=== PATIENT | female | born 1975 | race African-American/Black ===

== ENCOUNTER 2019-12-10 16:25 | Emergency (ER) | payer SELFPAY ==
[~2019-12-10] VITALS: Ht 157 cm; Wt 60.3 kg
[2019-12-10 17:44] LABS: CLARITY,URINE CLEAR; COLOR,URINE AMBER; GLUCOSE, URINE (UA) TRACE (NEGATIVE); KETONES,URINE TRACE (NEGATIVE); LEUKOCYTE ESTERASE ,URINE TRACE (NEGATIVE); NITRITE,URINE POSITIVE (NEGATIVE); PH,URINE 5.5 (5-9); PROTEIN,URINE 1+ (NEGATIVE)
[2019-12-10 17:51] LABS: BACTERIA,URINE LARGE /HPF; BILIRUBIN,URINE 3+ (NEGATIVE)
[2019-12-10 17:57] LABS: BASOPHILS # (AUTO) 0.1 10^3/uL (0.0-0.1); BASOPHILS % (AUTO) 2 % (0-10); EOSINOPHILS # (AUTO) 0.1 10^3/uL (0.0-0.3); EOSINOPHILS % (AUTO) 1 % (0-10); HEMATOCRIT 29 % (35-52); LYMPHOCYTES # (AUTO) 1.9 10^3/uL (1.0-4.0); LYMPHOCYTES % (AUTO) 24 % (12-44); MEAN CORPUSCULAR HEMOGLOBIN 30 pg (25-34); MEAN CORPUSCULAR HGB CONC 35 g/dL (32-36); MEAN CORPUSCULAR VOLUME 86 fL (80-99); MEAN PLATELET VOLUME 11.2 fL (9.0-12.2); MONOCYTES % (AUTO) 12 % (0-12); NEUTROPHILS # (AUTO) 4.9 10^3/uL (1.8-7.8); NEUTROPHILS % (AUTO) 61 % (42-75); PLATELET COUNT 144 10^3/uL (130-400)
[2019-12-10 18:07] LABS: AMYLASE 97 U/L (25-125)
[2019-12-10 18:08] LABS: AMMONIA 69 UMOL/L (11-32)
[2019-12-10 18:09] LABS: ALBUMIN 2.8 GM/DL (3.2-4.5); CHLORIDE 101 MMOL/L (98-107); POTASSIUM 3.3 MMOL/L (3.6-5.0); SODIUM 138 MMOL/L (135-145)
[2019-12-10 18:10] LABS: CALCIUM 8.2 MG/DL (8.5-10.1); INR 1.5 (0.8-1.4)
[2019-12-10 18:12] LABS: GLUCOSE 111 MG/DL (70-105); TOTAL PROTEIN 8.2 GM/DL (6.4-8.2)
[2019-12-10 18:13] LABS: CARBON DIOXIDE 26 MMOL/L (21-32)
[2019-12-10 18:14] LABS: BILIRUBIN,TOTAL 4.6 MG/DL (0.1-1.0)
[2019-12-10 18:15] LABS: ALKALINE PHOSPHATASE 177 U/L (40-136); CREATININE SERUM 0.64 MG/DL (0.60-1.30); GFR ESTIMATED > 60
[2019-12-10 18:16] LABS: BUN/CREATININE RATIO 13; LIPASE 86 U/L (8-78)
[2019-12-10 18:18] LABS: ALANINE AMINOTRANSFERASE 24 U/L (0-55); AMPHETAMINE SCREEN, URINE NEGATIVE (NEGATIVE); BARBITURATE SCREEN URINE NEGATIVE (NEGATIVE); BENZODIAZEPINES SCREEN URINE NEGATIVE (NEGATIVE); CANNABINOID SCREEN, URINE NEGATIVE (NEGATIVE); COCAINE SCREEN URINE NEGATIVE (NEGATIVE); METHADONE STAT NEGATIVE (NEGATIVE); METHAMPHETAMINE SCREEN URINE S NEGATIVE (NEGATIVE); OPIATE SCREEN URINE NEGATIVE (NEGATIVE); OXYCODONE STAT NEGATIVE (NEGATIVE); PROPOXYPHENE STAT NEGATIVE (NEGATIVE); TRICYCLIC ANTIDEPRESSANTS SCRE NEGATIVE (NEGATIVE)
[2019-12-10] MEDS ORDERED: IOHEXOL 350 MG/ML 100 ML (OMNIPAQUE 350) VIAL IV ONE (18:30)
[2019-12-10] MEDS ORDERED: NS 100 ML (IVPB) BAG IV ONE (18:30)
[2019-12-10] MEDS ORDERED: HOLD METFORMIN - RECEIVED CONTRAST 20 ML VIAL IV SCH (18:30)
[2019-12-10 18:38] LABS: TSH (THYROID ANALYZER) 2.23 UIU/ML (0.35-4.94)
--- NOTE | 2019-12-10 18:38 | ED GI ---
General Chief Complaint: Abdominal/GI Problems Stated Complaint: FOOT SWELLING/ABD SWELLING Nursing Triage Note: ARRIVED VIA AMB TO ROOM 07. SWOLLEN ABD VERY NOTICEABLE ALONG WITH BILAT SWOLLEN LEGS. EYES JAUNDICED. PT STATES SHE HAS BEEN THIS WAY FOR A WHILE. DENIES BEING PREGNAT AND ADMITS TO DRINKING DAILY. Sepsis Screen: No Definite Risk History of Present Illness Date Seen by Provider: Dec 10, 2019 Time Seen by Provider: 17:20 Initial Comments 44-year-old -Faro[place] female presents for swelling in her legs and abdominal distention. The patient states the symptoms have been present for 2-3 months. She moved to [place] from [place] approximately February 2019. She has not seen a healthcare provider in some time. She does not have an established provider in [facility]. She denies any abdominal pain, she has mild discomfort related to the distention, no chronic abdominal disease and no abdominal surgeries. She denies a menstrual cycle for the last 2 years. Urine HCG negative. She admits to drinking alcohol daily, varying amounts. Has drank daily for approximately 10 years, doesn't feel it controls her life and feels she could start decreasing her drinking. She denies any drug use. Timing/Duration: Intermittent Severity/Quality: Moderate Location: Generalized Abdomen Radiation: No Radiation Associated Symptoms: Denies Symptoms, Back Pain (chronic); No Chest Pain, No Fever/Chills, No Fatigue, No Heartburn, No Nausea/Vomiting, No Shortness of Air; Swelling/Mass in Abdomen Allergies and Home Medications Allergies Coded Allergies: No Known Drug Allergies (Unverified , 12/10/19) Home Medications Cephalexin 500 Mg Tablet, 500 MG PO TID Prescribed by: ANNE GARCIA on 12/10/191928 Patient Home Medication List Home Medication List Reviewed: Yes Review of Systems Review of Systems Constitutional: no symptoms reported, see HPI Respiratory: No Symptoms Reported, See HPI Cardiovascular: See HPI, Edema (trace bilateral lower extremity) Gastrointestinal: See HPI, Abdomen Distended; Denies Constipated, Denies Diarrhea, Denies Nausea, Denies Poor Appetite, Denies Poor Fluid Intake, Denies Rectal Bleeding, Denies Vomiting Genitourinary: No Symptoms Reported, See HPI Musculoskeletal: no symptoms reported, see HPI Skin: no symptoms reported, see HPI Psychiatric/Neurological: No Symptoms Reported, See HPI All Other Systems Reviewed Negative Unless Noted: Yes Past Esdfbuu-Wuzlcr-Qevpzf Hx Past Med/Social Hx: Reviewed Nursing Past Med/Soc Hx Patient Social History Recent Foreign Travel: No Contact w/Someone Who Travel: No Recent Infectious Disease Expo: No Recent Hopitalizations: No Seasonal Allergies Seasonal Allergies: No Past Medical History Surgeries: No Respiratory: No Cardiac: Yes Hypertension Neurological: No Genitourinary: No Gastrointestinal: No Musculoskeletal: Yes Back Injury Endocrine: No HEENT: No Cancer: No Psychosocial: Yes Anxiety, PTSD Integumentary: No Physical Exam Vital Signs Vital Signs - First Documented 12/10/19 17:20 Temp 37.0 Pulse 119 Resp 16 B/P (MAP) 126/96 (106) Pulse Ox 95 O2 Delivery Room Air Capillary Refill : Less Than 3 Seconds Height/Weight/BMI Height: '" Weight: lbs. oz. kg; 24.00 BMI Method: General Appearance: WD/WN, no apparent distress HEENT: normal ENT inspection, TMs normal, pharynx normal, scleral icterus (R), scleral icterus (L) Neck: non-tender, full range of motion, supple, normal inspection Respiratory: chest non-tender, lungs clear, normal breath sounds Cardiovascular: normal peripheral pulses, regular rate, rhythm, no murmur Gastrointestinal: non tender, no pulsatile mass, abnormal bowel sounds (Faint), distended (Marked); No rebound, No tenderness Extremities: normal range of motion, non-tender, normal inspection, normal capillary refill; No calf tenderness; other (2+ bilat pedal pulses, Cap refill < 2 sec. ) Back: normal inspection, no CVA tenderness Neurologic/Psychiatric: no motor/sensory deficits, alert, normal mood/affect, oriented x 3 Skin: normal color, warm/dry Lymphatic: no adenopathy Progress/Results/Core Measures Results/Orders Lab Results Laboratory Tests Test 12/10/19 17:40 12/10/19 17:45 Range/Units Urine Color ANTOINETTE H Urine Clarity CLEAR Urine pH 5.5 5-9 Urine Specific [place] >=1.030 1.016-1.022 Urine Protein 1+ H NEGATIVE Urine Glucose (UA) TRACE H NEGATIVE Urine Ketones TRACE H NEGATIVE Urine Nitrite POSITIVE H NEGATIVE Urine Bilirubin 3+ H NEGATIVE Urine Urobilinogen >=8.0 < = 1.0 MG/DL Urine Leukocyte Esterase TRACE H NEGATIVE Urine RBC (Auto) 1+ H NEGATIVE Urine RBC 2-5 H /HPF Urine WBC 5-10 H /HPF Urine Squamous Epithelial Cells 5-10 /HPF Urine Crystals NONE /LPF Urine Bacteria LARGE H /HPF Urine Casts NONE /LPF Urine Mucus NEGATIVE /LPF Urine Culture Indicated YES White Blood Count 8.0 4.3-11.0 10^3/uL Red Blood Count 3.34 L 3.80-5.11 10^6/uL Hemoglobin 10.0 L 11.5-16.0 g/dL Hematocrit 29 L 35-52 % Mean Corpuscular Volume 86 80-99 fL Mean Corpuscular Hemoglobin 30 25-34 pg Mean Corpuscular Hemoglobin Concent 35 32-36 g/dL Red Cell Distribution Width 23.5 H 10.0-14.5 % Platelet Count 144 130-400 10^3/uL Mean Platelet Volume 11.2 9.0-12.2 fL Immature Granulocyte % (Auto) 0 % Neutrophils (%) (Auto) 61 42-75 % Lymphocytes (%) (Auto) 24 12-44 % Monocytes (%) (Auto) 12 0-12 % Eosinophils (%) (Auto) 1 0-10 % Basophils (%) (Auto) 2 0-10 % Neutrophils # (Auto) 4.9 1.8-7.8 10^3/uL Lymphocytes # (Auto) 1.9 1.0-4.0 10^3/uL Monocytes # (Auto) 1.0 0.0-1.0 10^3/uL Eosinophils # (Auto) 0.1 0.0-0.3 10^3/uL Basophils # (Auto) 0.1 0.0-0.1 10^3/uL Immature Granulocyte # (Auto) 0.0 0.0-0.1 10^3/uL Prothrombin Time 18.0 H 12.2-14.7 SEC INR Comment 1.5 H 0.8-1.4 Activated Partial Thromboplast Time 42 H 24-35 SEC Sodium Level 138 135-145 MMOL/L Potassium Level 3.3 L 3.6-5.0 MMOL/L Chloride Level 101 98-107 MMOL/L Carbon Dioxide Level 26 21-32 MMOL/L Anion Gap 11 5-14 MMOL/L Blood Urea Nitrogen 8 7-18 MG/DL Creatinine 0.64 0.60-1.30 MG/DL Estimat Glomerular Filtration Rate > 60 BUN/Creatinine Ratio 13 Glucose Level 111 H 70-105 MG/DL Calcium Level 8.2 L 8.5-10.1 MG/DL Corrected Calcium 9.2 8.5-10.1 MG/DL Total Bilirubin 4.6 H 0.1-1.0 MG/DL Aspartate Amino Transf (AST/SGOT) 193 H 5-34 U/L Alanine Aminotransferase (ALT/SGPT) 24 0-55 U/L Alkaline Phosphatase 177 H 40-136 U/L Ammonia 69 H 11-32 UMOL/L B-Type Natriuretic Peptide 21.7 <100.0 PG/ML Total Protein 8.2 6.4-8.2 GM/DL Albumin 2.8 L 3.2-4.5 GM/DL Amylase Level 97 25-125 U/L Lipase 86 H 8-78 U/L TSH [place] Testing 2.23 0.35-4.94 UIU/ML Urine Opiates Screen NEGATIVE NEGATIVE Urine Oxycodone Screen NEGATIVE NEGATIVE Urine Methadone Screen NEGATIVE NEGATIVE Urine Propoxyphene Screen NEGATIVE NEGATIVE Urine Barbiturates Screen NEGATIVE NEGATIVE Ur Tricyclic Antidepressants Screen NEGATIVE NEGATIVE Urine Phencyclidine Screen NEGATIVE NEGATIVE Urine Amphetamines Screen NEGATIVE NEGATIVE Urine Methamphetamines Screen NEGATIVE NEGATIVE Urine Benzodiazepines Screen NEGATIVE NEGATIVE Urine Cocaine Screen NEGATIVE NEGATIVE Urine Cannabinoids Screen NEGATIVE NEGATIVE Serum Alcohol 198 H <10 MG/DL My Orders Orders - ANNE GARCIA Urine Bedside (12/10/19 17:31) Cbc With Automated Diff (12/10/19 17:31) Comprehensive Metabolic Panel (12/10/19 17:31) Thyroid Analyzer (12/10/19 17:31) Ua Culture If Indicated (12/10/19 17:31) Urine Culture (12/10/19 17:40) Alcohol (12/10/19 17:57) Ammonia (12/10/19 17:57) Amylase (12/10/19 17:57) BNP (12/10/19 17:57) Drug Screen Stat (Urine) (12/10/19 17:57) Lipase (12/10/19 17:57) Protime With Inr (12/10/19 17:57) Partial Thromboplastin Time (12/10/19 17:57) Ct Abdomen/Pelvis W Wo (12/10/19 18:22) Iohexol Injection (Omnipaque 350 Mg/Ml 1 (12/10/19 18:30) Received Contrast (Hold Metformin- Contr (12/10/19 18:30) Ns (Ivpb) (Sodium Chloride 0.9% Ivpb Bag (12/10/19 18:30) Ed Iv/Invasive Line Start (12/10/19 19:06) Ns Iv 1000 Ml (Sodium Chloride 0.9%) (12/10/19 19:06) Ceftriaxone For Iv Use (Rocephin For I (12/10/19 19:15) Medications Given in ED Current Medications Medications Dose Ordered Sig/Andrea Route Start Time Stop Time Status Last Admin Dose Admin Ceftriaxone Sodium 1000 mg/ Sterile Water 10 ml @ 200 mls/hr ONCE ONCE IV 12/10/19 19:15 12/10/19 19:17 DC 12/10/19 19:17 200 MLS/HR Iohexol 100 ml ONCE ONCE IV 12/10/19 18:30 12/10/19 19:16 DC 12/10/19 18:46 100 ML Sodium Chloride 100 ml ONCE ONCE IV 12/10/19 18:30 12/10/19 19:16 DC 12/10/19 18:46 100 ML Vital Signs/I&O 12/10/19 12/10/19 17:20 20:01 Temp 37.0 36.9 Pulse 119 105 Resp 16 16 B/P (MAP) 126/96 (106) 138/92 (106) Pulse Ox 95 94 O2 Delivery Room Air Room Air Blood Pressure Mean: 106 Progress Progress Note : Time: 17:20 Progress Note Patient seen and evaluated, will obtain a lab, pending those will get CT abdomen and pelvis. No evidence of hepatic encephalopathy, alert, oriented, no confusion. [address] Reddy about CT, will see tomorrow for Paracentesis. 1830 NS 1L IV and Rocephin 1 gm IV. [address] findings with the patient. Expressed concern that she gets follow-up. Patient agreeable. Discussed her alcohol intake. [address] Ojeda, she will get patient appt with [facility] Olman [facility]. Discharge instructions and return precautions reviewed with the patient. All questions answered. Diagnostic Imaging Diagonstic Imaging: Xray Plain Films/CT/US/NM/MRI: abdomen, pelvis Comments NAME: VER[facility]LL [facility] REC#: [id number] PT STATUS: REG ER : 1975 PHYSICIAN: ANNE GARCIA ADMIT DATE: 12/10/19/ER Draft Date of Exam:12/10/19 CT ABDOMEN/PELVIS W WO PROCEDURE: CT abdomen and pelvis with and without contrast. TECHNIQUE: Precontrast acquisitions were acquired through the abdomen and pelvis. Multiple contiguous axial images were obtained through the abdomen and pelvis after the administration of intravenous contrast. Auto Exposure Controls were utilized during the CT exam to meet ALARA standards for radiation dose reduction. INDICATION: Abdominal pain and ascites COMPARISON: None FINDINGS: The lung bases are clear. The heart is normal in size. The liver demonstrates a heterogeneous appearance, with some nodularity of the contour. The spleen is normal in size. The portal vein appears patent. There is thickening of the gallbladder wall, which is likely reactive. There is hyperdensity at the inferior gallbladder, which may represent multiple small stones. The kidneys are unremarkable. The adrenal glands appear normal. The pancreas appears normal. There are fluid-filled loops of small bowel with some wall thickening, which is likely reactive. No obstruction is seen. There is diverticulosis in the colon without diverticulitis. There is severe ascites. No free air seen. No acute osseous abnormality is seen. IMPRESSION: 1. Severe ascites. Cirrhotic appearance of the liver. 2. Cholelithiasis. Dictated on workstation # [id number] Dict: 12/10/194 Trans: 12/10/19 1859 SEAN [id number] Interpreted by: JOHN OLIVO MD Electronically signed by: Departure Impression Primary Impression: Cirrhosis Qualified Codes: K70.30 - Alcoholic cirrhosis of liver without ascites Additional Impressions: Ascites Qualified Codes: R18.8 - Other ascites UTI (urinary tract infection) Qualified Codes: N30.01 - Acute cystitis with hematuria Disposition: HOME, SELF-CARE Condition: Stable Departure-Patient Inst. Decision time for Depature: 19:00 Referrals: [facility]/ISAAC TORRES DO NO,LOCAL PHYSICIAN (PCP) Primary Care Physician Patient Instructions: Cirrhosis (DC), Fluid in the Belly (Ascites) Add. Discharge Instructions: Come to [facility] at 10:00 am, you will be sent to Radiology to have the fluid drained by Dr. Reddy. Slowly start decreasing your daily alcohol intake. increase water intake. Empty bladder frequently. Take antibiotics, as prescribed. [facility] will call you, to establish care with Dr. Olman Lorenzo. Do not drive, if you have been drinking alcohol. Return to the emergency department for new, urgent health care needs. All discharge instructions reviewed with patient and/or family. Voiced understanding. Scripts Cephalexin (Cephalexin) 500 Mg Tablet 500 MG PO TID, #15 TAB 0 Refills Prov: ANNE GARCIA 12/10/19 Work/School Note: Family Work Note Patient Received Medical Care In the Emergency Department On: Dec 10, 2019 Patient Will Be Able to Return to Work/School On: Dec 12, 2019 Patient Restrictions: Please excuse her on 12/11/19 to bring her to procedure at hospital Copy Copies To 1: ISAAC REDDY DO; LUIS ALBERTO OJEDA MD Copies To 2: OLMAN LORENZO MD, AMY ARNP Dec 10, 2019 18:38
--- NOTE | 2019-12-10 18:59 | Diagnostic Imaging Report ---
PROCEDURE: CT abdomen and pelvis with and without contrast. TECHNIQUE: Precontrast acquisitions were acquired through the abdomen and pelvis. Multiple contiguous axial images were obtained through the abdomen and pelvis after the administration of intravenous contrast. Auto Exposure Controls were utilized during the CT exam to meet ALARA standards for radiation dose reduction. INDICATION: Abdominal pain and ascites COMPARISON: None FINDINGS: The lung bases are clear. The heart is normal in size. The liver demonstrates a heterogeneous appearance, with some nodularity of the contour. The spleen is normal in size. The portal vein appears patent. There is thickening of the gallbladder wall, which is likely reactive. There is hyperdensity at the inferior gallbladder, which may represent multiple small stones. The kidneys are unremarkable. The adrenal glands appear normal. The pancreas appears normal. There are fluid-filled loops of small bowel with some wall thickening, which is likely reactive. No obstruction is seen. There is diverticulosis in the colon without diverticulitis. There is severe ascites. No free air seen. No acute osseous abnormality is seen. IMPRESSION: 1. Severe ascites. Cirrhotic appearance of the liver. 2. Cholelithiasis. Dictated by: Dictated on workstation # [id number]
[2019-12-10] MEDS ORDERED: NS IV 1000 ML 1,000 ML IV SCH (19:06)
[2019-12-10] MEDS ORDERED: cefTRIAXone FOR IV USE 1,000 MG in WATER (STERILE) FOR INJECTION 10 ML IV ONE (19:15)
[2019-12-10] MEDS ORDERED: CEPH500T PO (19:29)
[2019-12-10 20:01] VITALS: BP 138/92
== END 2019-12-10 20:04 | disposition home or self-care (01) ==
LOC: ER 16:27
DX: K74.60 Unspecified cirrhosis of liver (principal); R18.8 Other ascites; N39.0 Urinary tract infection, site not specified
CPT/HCPCS: 74178; 80053; 80306; 81000; 82140; 82150; 83690; 83880; 84443; 84703; 85025; 85610; 85730; 87077; 87088; 99284; G0480; 36415; 80320; 87186

== ENCOUNTER → 2019-12-11 | Outpatient (CLI) | payer BC ==
[~2019-12-11] VITALS: Ht 157.5 cm; Wt 56.8 kg
[~2019-12-11] MED LIST: ALBUMIN 25% 25 GM/100 ML 100 ML IV ONE; CEPH500T PO
[2019-12-11 12:30] VITALS: BP 134/95
[2019-12-11 12:45] VITALS: BP 139/98
[2019-12-11 13:00] VITALS: BP 139/98
[2019-12-11 13:20] VITALS: BP 131/95
[2019-12-11 14:26] LABS: TOTAL PROTEIN,BODY FLUID 1.8 G/DL
[2019-12-11 14:27] LABS: GLUCOSE,BODY FLUID 101 MG/DL
[2019-12-11 14:28] LABS: AMYLASE,BODY FLUID 37 U/L
[2019-12-11 14:33] LABS: LDH,BODY FLUID 80 U/L
[2019-12-11 15:31] LABS: BODY FLUID APPEARENCE SLT CLDY; BODY FLUID COLOR YELLOW; BODY FLUID RBC COUNT 69 /uL; BODY FLUID SOURCE PERITON; BODY FLUID WBC TOTAL COUNT 106 /uL
[2019-12-11 15:32] LABS: BF OTHER CELLS 78 %; LYMPHOCYTES,BODY FLUID 19 %
--- NOTE | 2019-12-12 04:21 | OPERATIVE REPORT ---
DATE OF SERVICE: 12/11/2019 PREOPERATIVE DIAGNOSIS: Symptomatic ascites. POSTOPERATIVE DIAGNOSIS: Symptomatic ascites. PROCEDURE: Ultrasound-guided paracentesis. SURGEON: Isaac Christensen DO ANESTHESIA: 1% lidocaine 3 mL. COMPLICATIONS: None. INDICATIONS: The patient is a 44-year-old female who was in the Emergency Department last night due to symptomatic ascites. The patient states that her abdomen has become more and more distended over the last couple of months. She states that she has significant alcohol usage and it was recommended that a paracentesis to be performed. She understands risks and benefits of procedure and wished to proceed with procedure. Consent was signed in the chart. DESCRIPTION OF PROCEDURE: The patient was in the procedure room. Ultrasound was used to isolate the largest pocket for catheter insertion. Once this was located, the area was prepped and draped in sterile fashion. Local anesthetic was infiltrated. An 11 blade scalpel was used to make a small stab incision. The [id number] needle and catheter were advanced through the abdominal wall into the abdomen when straw colored fluid was returned. The catheter was then advanced and a total of 6150 mL of straw colored fluid was withdrawn. The catheter was then removed and sterile bandage was applied. The patient tolerated procedure well without any complications. Job ID: [id number] DocumentID: [id number] Dictated Date: 12/11/2019 19:40:59 Director Of Psychology Date: 12/12/2019 04:20:10 Dictated By: ISAAC CHRISTENSEN DO
== END ==
LOC: RAD 10:09
PROVIDERS: ATTEND Surgery
DX: R18.8 Other ascites (principal)
CPT/HCPCS: 49083; 82150; 82570; 82945; 83615; 84157; 87070; 87075; 87205; 89051; A7048; 88112; 88305

== ENCOUNTER 2019-12-27 07:47 | Emergency (ER) | payer BC ==
[~2019-12-27] VITALS: Ht 157 cm; Wt 56.6 kg
[~2019-12-27 07:47] MED LIST changes: -ALBUMIN 25% 25 GM/100 ML 100 ML IV ONE
[2019-12-27] MEDS ORDERED: ONDANSETRON 4 MG/2 ML (SDV) Z0FRAN IVP ONE (08:30)
[2019-12-27 08:43] LABS: BASOPHILS # (AUTO) 0.1 10^3/uL (0.0-0.1); BASOPHILS % (AUTO) 1 % (0-10); EOSINOPHILS % (AUTO) 0 % (0-10); HEMATOCRIT 30 % (35-52); HEMOGLOBIN 10.5 g/dL (11.5-16.0); LYMPHOCYTES # (AUTO) 1.3 10^3/uL (1.0-4.0); LYMPHOCYTES % (AUTO) 7 % (12-44); MEAN CORPUSCULAR HEMOGLOBIN 31 pg (25-34); MEAN CORPUSCULAR HGB CONC 35 g/dL (32-36); MEAN CORPUSCULAR VOLUME 89 fL (80-99); MONOCYTES % (AUTO) 6 % (0-12); NEUTROPHILS # (AUTO) 14.9 10^3/uL (1.8-7.8); NEUTROPHILS % (AUTO) 84 % (42-75); PLATELET COUNT 268 10^3/uL (130-400); WHITE BLOOD COUNT 17.7 10^3/uL (4.3-11.0)
[2019-12-27 08:52] LABS: ALBUMIN 2.8 GM/DL (3.2-4.5); POTASSIUM 3.7 MMOL/L (3.6-5.0)
[2019-12-27 08:53] LABS: CALCIUM 8.8 MG/DL (8.5-10.1)
[2019-12-27 08:55] LABS: TOTAL PROTEIN 8.3 GM/DL (6.4-8.2)
[2019-12-27 08:58] LABS: CREATININE SERUM 1.32 MG/DL (0.60-1.30)
[2019-12-27 09:02] LABS: BAND NEUTROPHILS 2 %; BASOPHILS % (MANUAL) 0 %; EOSINOPHILS % (MANUAL) 0 %; LYMPHOCYTES % (MANUAL) 11 %; METAMYELOCYTES % 1 %; MONOCYTES % (MANUAL) 5 %; NEUTROPHILS % (MANUAL) 81 %
[2019-12-27 09:03] LABS: TARGET CELLS MODERATE
--- NOTE | 2019-12-27 09:06 | ED Abdominal Pain ---
General Chief Complaint: Abdominal/GI Problems Stated Complaint: BACK AND STOMACH PAIN, Nursing Triage Note: PT PRESENTS TO ED FOR ABDOMINAL AND BACK PAIN X'S 3 DAYS. PT AMBULATED TO ROOM WITHOUT DIFFICULTY. Sepsis Screen: No Definite Risk (KIA RENE) History of Present Illness Date Seen by Provider: Dec 27, 2019 Time Seen by Provider: 08:45 Initial Comments Irena is a 44 yo F with history of hypertension and liver failure due to alcohol abuse who presents with abdominal pain and distention. The patient had just over 6 liters drained via paracentesis on 12/[address] Reddy, which was the first time she had that procedure done. She reports her abdomen is swollen and 'never really went down' with the prior draining. The patient complains of 2 days of sudden onset constant pressing generalized abdominal pain radiating to the back diffusely and bilaterally, with nausea and multiple episodes of vomiting since 11pm last night. Her pain is currently 8/10. The patient denies fever, chills, chest pain, SOB, cough, constipation, and diarrhea. She states her LMP was march 2018. States last alcohol use was prior to her paracentesis. (KIA RENE) Allergies and Home Medications Allergies Coded Allergies: No Known Drug Allergies (Unverified , 12/10/19) Home Medications Cephalexin 500 Mg Tablet, 500 MG PO TID Prescribed by: ANNE GARCIA on 12/10/191928 Cephalexin 500 Mg Capsule, 500 MG PO TID Prescribed by: MUSHTAQ REGALADO on 12/27/19 1241 Ondansetron 4 Mg Tab.rapdis, 4 MG SL Q4H PRN for NAUSEA/VOMITING Prescribed by: MUSHTAQ REGALADO on 12/27/19 1241 Patient Home Medication List Home Medication List Reviewed: Yes (MUSHTAQ DAMON MD) Review of Systems Review of Systems Constitutional: No chills, No fever Respiratory: Denies Cough, Denies Shortness of Air Cardiovascular: Denies Chest Pain Gastrointestinal: Abdomen Distended, Abdominal Pain; Denies Constipated, Denies Diarrhea; Nausea, Vomiting Musculoskeletal: back pain (KIA RENE) All Other Systems Reviewed Negative Unless Noted: Yes (KIA RENE) Past Oxormwh-Mxaggv-Ytrakv Hx Past Med/Social Hx: Reviewed Nursing Past Med/Soc Hx (MUSHTAQ DAMON MD) Patient Social History Alcohol Use: Denies Use Alcohol Beverage of Choice: Beer Recreational Drug Use: No Recent Foreign Travel: No Contact w/Someone Who Travel: No Recent Infectious Disease Expo: No Recent Hopitalizations: No (KIA RENE) Seasonal Allergies Seasonal Allergies: No (KIA RENE) Past Medical History Surgeries: No Respiratory: No Cardiac: Yes Hypertension Neurological: No Genitourinary: No Gastrointestinal: No Musculoskeletal: Yes Back Injury Endocrine: No HEENT: No Cancer: No Psychosocial: Yes Anxiety, PTSD Integumentary: No (KIA RENE) Physical Exam Vital Signs Vital Signs - First Documented 12/27/19 07:55 Temp 35.2 Pulse 77 Resp 20 O2 Delivery Room Air (MUSHTAQ DAMON MD) Vital Signs Capillary Refill : Less Than 3 Seconds (KIA RENE) Height/Weight/BMI Height: '" Weight: lbs. oz. kg; 22.00 BMI Method: General Appearance: WD/WN, no apparent distress HEENT: PERRL/EOMI, scleral icterus (R), scleral icterus (L) Respiratory: chest non-tender, lungs clear, normal breath sounds, no respiratory distress, no accessory muscle use Cardiovascular: regular rate, rhythm, no edema, no gallop, no JVD, no murmur Gastrointestinal: normal bowel sounds, soft, distended (grossly distended. Protruding umbilicus. No bruising, no rash) Back: normal inspection, no CVA tenderness, no vertebral tenderness Neurologic/Psychiatric: alert, normal mood/affect, oriented x 3 Skin: warm/dry, jaundice (KIA RENE) Progress/Results/Core Measures Results/Orders Lab Results Laboratory Tests Test 12/27/19 08:31 12/27/19 09:42 Range/Units White Blood Count 17.7 H 4.3-11.0 10^3/uL Red Blood Count 3.36 L 3.80-5.11 10^6/uL Hemoglobin 10.5 L 11.5-16.0 g/dL Hematocrit 30 L 35-52 % Mean Corpuscular Volume 89 80-99 fL Mean Corpuscular Hemoglobin 31 25-34 pg Mean Corpuscular Hemoglobin Concent 35 32-36 g/dL Red Cell Distribution Width 22.9 H 10.0-14.5 % Platelet Count 268 130-400 10^3/uL Mean Platelet Volume 12.0 9.0-12.2 fL Immature Granulocyte % (Auto) 2 % Neutrophils (%) (Auto) 84 H 42-75 % Lymphocytes (%) (Auto) 7 L 12-44 % Monocytes (%) (Auto) 6 0-12 % Eosinophils (%) (Auto) 0 0-10 % Basophils (%) (Auto) 1 0-10 % Neutrophils # (Auto) 14.9 H 1.8-7.8 10^3/uL Lymphocytes # (Auto) 1.3 1.0-4.0 10^3/uL Monocytes # (Auto) 1.0 0.0-1.0 10^3/uL Eosinophils # (Auto) 0.0 0.0-0.3 10^3/uL Basophils # (Auto) 0.1 0.0-0.1 10^3/uL Immature Granulocyte # (Auto) 0.4 H 0.0-0.1 10^3/uL Neutrophils % (Manual) 81 % Lymphocytes % (Manual) 11 % Monocytes % (Manual) 5 % Eosinophils % (Manual) 0 % Basophils % (Manual) 0 % Metamyelocytes % 1 % Band Neutrophils 2 % Target Cells MODERATE Sodium Level 132 L 135-145 MMOL/L Potassium Level 3.7 3.6-5.0 MMOL/L Chloride Level 94 L 98-107 MMOL/L Carbon Dioxide Level 23 21-32 MMOL/L Anion Gap 15 H 5-14 MMOL/L Blood Urea Nitrogen 9 7-18 MG/DL Creatinine 1.32 H 0.60-1.30 MG/DL Estimat Glomerular Filtration Rate 53 BUN/Creatinine Ratio 7 Glucose Level 154 H 70-105 MG/DL Calcium Level 8.8 8.5-10.1 MG/DL Corrected Calcium 9.8 8.5-10.1 MG/DL Total Bilirubin 8.0 H 0.1-1.0 MG/DL Aspartate Amino Transf (AST/SGOT) 115 H 5-34 U/L Alanine Aminotransferase (ALT/SGPT) 22 0-55 U/L Alkaline Phosphatase 178 H 40-136 U/L C-Reactive Protein High Sensitivity 3.61 H 0.00-0.50 MG/DL Total Protein 8.3 H 6.4-8.2 GM/DL Albumin 2.8 L 3.2-4.5 GM/DL Lipase 981 H 8-78 U/L Serum Test, Qualitative NEGATIVE NEGATIVE Urine Color ANTOINETTE H Urine Clarity TURBID Urine pH 5.0 5-9 Urine Specific Edwards 1.025 H 1.016-1.022 Urine Protein 2+ H NEGATIVE Urine Glucose (UA) TRACE H NEGATIVE Urine Ketones 1+ H NEGATIVE Urine Nitrite POSITIVE H NEGATIVE Urine Bilirubin 3+ H NEGATIVE Urine Urobilinogen 2.0 < = 1.0 MG/DL Urine Leukocyte Esterase 2+ H NEGATIVE Urine RBC (Auto) TRACE-L NEGATIVE Urine RBC 5-10 H /HPF Urine WBC >100 H /HPF Urine Squamous Epithelial Cells >50 H /HPF Urine Crystals NONE /LPF Urine Bacteria LARGE H /HPF Urine Casts NONE /LPF Urine Mucus NEGATIVE /LPF Urine Culture Indicated YES (MUSHTAQ DAMON MD) My Orders Orders - MUSHTAQ DAMON MD Cbc With Automated Diff (12/27/19 08:18) Comprehensive Metabolic Panel (12/27/19 08:18) Hs C Reactive Protein (12/27/19 08:18) Lipase (12/27/19 08:18) Ua Culture If Indicated (12/27/19 08:18) Ed Iv/Invasive Line Start (12/27/19 08:18) Hcg,Qualitative Serum (12/27/19 08:18) Ondansetron Injection (Zofran Injectio (12/27/19 08:30) Manual Differential (12/27/19 08:31) Chest 1 View, Ap/Pa Only (12/27/19 10:00) Urine Culture (12/27/19 09:42) Ceftriaxone For Iv Use (Rocephin For I (12/27/19 11:15) Albumin 25% 25 Gm/100 Ml (Albumin 25% 25 (12/27/19 12:00) (MUSHTAQ DAMON MD) Medications Given in ED Current Medications Medications Dose Ordered Sig/Andrea Route Start Time Stop Time Status Last Admin Dose Admin Albumin Human 100 ml @ 50 mls/hr ONCE ONCE IV 12/27/19 12:00 12/27/19 13:59 12/27/19 12:40 50 MLS/HR Ceftriaxone Sodium 1000 mg/ Sterile Water 10 ml @ 200 mls/hr ONCE ONCE IV 12/27/19 11:15 12/27/19 11:17 DC 12/27/19 11:42 200 MLS/HR Ondansetron HCl 8 mg ONCE ONCE IVP 12/27/19 08:30 12/27/19 08:31 DC 12/27/19 08:37 8 MG (MUSHTAQ DAMON MD) Vital Signs/I&O 12/27/19 07:55 Temp 35.2 Pulse 77 Resp 20 B/P (MAP) O2 Delivery Room Air (MUSHTAQ DAMON MD) Progress Progress Note : Time: 09:12 Progress Note 44yo F with history of paracentesis for alcohol abuse-related ascites 2 weeks ago presents with abdominal distention, pain, and nausea with vomiting at home. VS have temperature at 35.2 but otherwise stable and within normal limits. The patient has a grossly distended abdomen without peritoneal signs as well as a nontender back. CBC, CMP, lipase, UA, and serum ordered. Zofran given for nausea with significant improvement. Will consult for a paracentesis and reassess the patient's symptoms. (KIA RENE MED STUDENT) Progress Note : Time: 12:57 Progress Note Patient was seen and examined by me. Labs were reviewed. Abdomen is markedly distended but not tender. Patient is afebrile. Dr. Mckenna was consulted and performed paracentesis yielding nearly 5 L of clear yellow fluid. Patient was found to have urinary tract infection which likely explains her leukocytosis. Rocephin was given. Patient did not meet septic criteria. Interestingly, lipase was elevated but patient did not have any tenderness, even after repeat examination after paracentesis. She does have a history of gallstones. Without acute pain or tenderness in the upper abdomen or active vomiting, no further action was taken on her labs. I discussed this with Dr. Mckenna. He believes the abnormal labs are likely due to advancing cirrhosis. He recommended repeating the labs and keeping follow-up with Dr. Reddy and Dr. Uriostegui next week. I discussed these issues with the patient and gave her return precautions, advising her to return to the emergency room if she developed upper abdominal pain or other concerning symptoms. Albumin 25 g was administered after paracentesis per Dr. Mckenna's recommendations. (MUSHTAQ DAMON MD) Departure Impression Primary Impression: Ascites Qualified Codes: K70.11 - Alcoholic hepatitis with ascites Additional Impressions: Chronic liver failure Qualified Codes: K72.10 - Chronic hepatic failure without coma Urinary tract infection Qualified Codes: N39.0 - Urinary tract infection, site not specified Hyperbilirubinemia Elevated lipase Disposition: HOME, SELF-CARE Condition: Improved Departure-Patient Inst. Decision time for Depature: 12:30 (MUSHTAQ DAMON MD) Referrals: NO,LOCAL PHYSICIAN (PCP/Family) Primary Care Physician Patient Instructions: Liver Failure Diet, Urinary Tract Infection, Adult (DC) Add. Discharge Instructions: Complete your antibiotics as prescribed. Follow-up with Dr. Reddy in the clinic next December 31 at 4: 00 p.m. take your prescription to the hospital on December 30 to have labs drawn before the appointment. Consume strictly a clear liquid diet for the next 24 hours and then gradually advance your diet as tolerated. Follow-up with your primary care provider soon as possible. Do not drink alcohol. Do not take Tylenol (acetaminophen). Return to the emergency room if you have worsening symptoms or other urgent issues. All discharge instructions reviewed with patient and/or family. Voiced understanding. Scripts Ondansetron (Ondansetron Odt) 4 Mg Tab.rapdis 4 MG SL Q4H PRN for NAUSEA/VOMITING, #10 TAB Prov: MUSHTAQ DAMON MD 12/27/19 Cephalexin (Keflex) 500 Mg Capsule 500 MG PO TID, #20 CAP Prov: MUSHTAQ DAMON MD 12/27/19 Patient was interviewed and examined by me personally along with Kareem Rene, MS3. I have reviewed MS 3 documentation including history, physical, and assessments. I agree with his documentation except where otherwise noted. See progress note above. This patient has known alcoholic cirrhosis. She reports abstinence of alcohol for about the last 2 weeks. She is established with Dr. Reddy and Dr. Uriostegui. 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 Exam: General: Alert, oriented, no acute distress HEENT: Normal cephalic and atraumatic Lungs: Clear to auscultation bilaterally with normal effort Heart: Regular rate and rhythm without murmur Abdomen: Distended, nontender to palpation or percussion, normal bowel sounds Extremities: Normal to inspection Neuropsych: Alert, oriented, no focal deficit (MUSHTAQ DAMON MD) Copy Copies To 1: ISAAC REDDY DO Copies To 2: MARIPOSA URIOSTEGUI MD, PETER MED STUDENT Dec 27, 2019 09:06 MUSHTAQ DAMON MD Dec 27, 2019 12:34
[2019-12-27 09:47] LABS: CLARITY,URINE TURBID; COLOR,URINE AMBER; GLUCOSE, URINE (UA) TRACE (NEGATIVE); KETONES,URINE 1+ (NEGATIVE); LEUKOCYTE ESTERASE ,URINE 2+ (NEGATIVE); NITRITE,URINE POSITIVE (NEGATIVE); PROTEIN,URINE 2+ (NEGATIVE)
[2019-12-27 10:01] LABS: BACTERIA,URINE LARGE /HPF; BILIRUBIN,URINE 3+ (NEGATIVE); SQUAMOUS EPITHELIAL CELL,UR >50 /HPF; WBC,URINE >100 /HPF
--- NOTE | 2019-12-27 10:18 | Diagnostic Imaging Report ---
INDICATION: Abdominal pain and back pain. Time of exam 10:15 AM No prior studies are available for comparison. There appears to be some atelectasis or infiltrate in the right base. Otherwise, the lungs are clear. The pulmonary vascularity is normal. There is no effusion or pneumothorax. IMPRESSION: There is an area of subsegmental atelectasis versus infiltrate in the right base. Study is otherwise unremarkable. Dictated by: Dictated on workstation # [id number]
[2019-12-27] MEDS ORDERED: cefTRIAXone FOR IV USE 1,000 MG in WATER (STERILE) FOR INJECTION 10 ML IV ONE (11:15)
--- NOTE | 2019-12-27 11:39 | Progress Note-Post Operative ---
Post-Operative Progess Note Surgeon (s)/Pointer Machine Operator (s) Surgeon MOHAN CURTIS DO Pointer Machine Operator: none Pre-Operative Diagnosis Ascites, Cirrhosis Post-Operative Diagnosis same Procedure & Operative Findings Date of Procedure 12/27/19 Procedure Performed/Findings INDICATION FOR PROCEDURE: The patient is a 44-year-old female, who had increasing abdominal girth a history of ascites and needs to get this removed. FINDINGS: The patient had yellowish ascitic fluid removed. PROCEDURE NOTE: After informed consent was obtained, the patient was in the ER room, timeout was performed and then the patient was sterilely prepped and draped in normal fashion. He had already been previously marked by the ultrasound and then ultrasound watched as I first infiltrated the skin with local and then made a small stab incision with #11 blade and then advanced the safe needle at the spot with ultrasound and marked gently into the abdomen, able to push through and then got a good flash of ascitic fluid and then pushed the catheter in and pulled the needle out, went in easily and then hooked this up to vacutainer and got out yellowish ascitic fluid. No bleeding at all, drained approximately 4800ml of ascitic fluid. The patient tolerated the procedure. The catheter was removed and an area was cleaned and dried and bandaged. She then received 25 mg of albumin, per protocol. Sponge, instrument and needle count correct at the end of the case. Anesthesia Type local lidocaine Estimated Blood Loss Estimated blood loss (mL): scant Specimens/Packing Specimens Removed ascitic fluid MOHAN CURTIS DO Dec 27, 2019 11:39
--- NOTE | 2019-12-27 11:45 | Consultation - Surgery ---
History of Present Illness History of Present Illness Patient Consulted On(francisco/time) 12/27/19 11:39 Time Seen by Provider: 10:07 History of Present Illness Surgery asked to consult regarding Ascites. HPI per ED: Irena is a 44 yo F with history of hypertension and liver failure due to alcohol abuse who presents with abdominal pain and distention. The patient had just over 6 liters drained via paracentesis on 12/[address] Christensen, which was the first time she had that procedure done. She reports her abdomen is swollen and 'never really went down' with the prior draining. The patient complains of 2 days of sudden onset constant pressing generalized abdominal pain radiating to the back diffusely and bilaterally, with nausea and multiple episodes of vomiting since 11pm last night. Her pain is currently 8/10. The patient denies fever, chills, chest pain, SOB, cough, constipation, and diarrhea. She states her LMP was march 2018. States last alcohol use was prior to her paracentesis. When I spoke to pt she stated that "discomfort" started about a week after her last paracentesis and her belly started getting bigger. Allergies and Home Medications Allergies Coded Allergies: No Known Drug Allergies (Unverified , 12/10/19) Home Medications Cephalexin 500 Mg Tablet, 500 MG PO TID Prescribed by: ANNE GARCIA on 12/10/19 192 Patient Home Medication List Home Medication List Reviewed: Yes Past Qptbjci-Vsskck-Apdegp Hx Patient Social History Alcohol Use: Past History (EtOH abuse causing her Cirrhosis) Recreational Drug Use: No Smoking Status: Former Smoker Recent Foreign Travel: No Contact w/Someone Who Travel: No Recent Infectious Disease Expo: No Recent Hopitalizations: No Seasonal Allergies Seasonal Allergies: No Surgeries History of Surgeries: No Respiratory History of Respiratory Disorde: No Cardiovascular History of Cardiac Disorders: Yes Cardiac Disorders: Hypertension Neurological History of Neurological Disord: No Genitourinary History of Genitourinary Disor: No Gastrointestinal History of Gastrointestinal Di: No Musculoskeletal History of Musculoskeletal Dis: Yes Musculoskeletal Disorders: Back Injury Endocrine History of Endocrine Disorders: No HEENT History of HEENT Disorders: No Cancer History of Cancer: No Psychosocial History of Psychiatric Problem: Yes Behavioral Health Disorders: Anxiety, PTSD Integumentary History of Skin or Integumenta: No Family Medical History Significant Family History: Diabetes (father), Hypertension (father) Review of Systems-General Constitutional: No chills, No diaphoresis; malaise, weakness EENTM: No blurred vision, No double vision, No mouth pain, No mouth swelling, No epistaxis Respiratory: No cough, No dyspnea on exertion, No hemoptysis Cardiovascular: No chest pain, No edema Gastrointestinal: abdominal pain, jaundice; No melena, No nausea, No vomiting Genitourinary: dysuria, frequency; No hematuria Musculoskeletal: joint pain, joint swelling, muscle pain, muscle stiffness Skin: No change in color, No change in hair/nails Psychiatric/Neurological: Anxiety, Emotional Problems; Denies Seizure, Denies Tremors Other pt denies any hx of abnormal bleeding or bruising Physical Exam-General Problems Physical Exam Vital Signs Vital Signs - First Documented 12/27/19 07:55 Temp 35.2 Pulse 77 Resp 20 O2 Delivery Room Air Capillary Refill : Less Than 3 Seconds General Appearance: WD/WN, mild distress Eyes: Bilateral Eye PERRL, Bilateral Eye EOMI HEENT: pharynx normal, scleral icterus (R), scleral icterus (L) Neck: non-tender, supple Respiratory: chest non-tender, lungs clear, normal breath sounds, no respiratory distress, no accessory muscle use Cardiovascular: regular rate, rhythm, no murmur Gastrointestinal: soft, no organomegaly, distended (with fluid wave) Back: no CVA tenderness, no vertebral tenderness Extremities: no pedal edema, no calf tenderness, normal capillary refill Neurologic/Psychiatric: inspection manager II-XII nml as tested, no motor/sensory deficits, alert, normal mood/affect, oriented x 3 Skin: normal color, warm/dry Lymphatic: no adenopathy (neck, axilla or groin) Data Review Labs Laboratory Tests 12/27/19 08:31: White Blood Count 17.7H, Red Blood Count 3.36L, Hemoglobin 10.5L, Hematocrit 30L , Mean Corpuscular Volume 89, Mean Corpuscular Hemoglobin 31, Mean Corpuscular Hemoglobin Concent 35, Red Cell Distribution Width 22.9H, Platelet Count 268, M marianna Platelet Volume 12.0, Immature Granulocyte % (Auto) 2, Neutrophils (%) (Auto) 84H, Lymphocytes (%) (Auto) 7L, Monocytes (%) (Auto) 6, Eosinophils (%) (Auto) 0, Basophils (%) (Auto) 1, Neutrophils # (Auto) 14.9H, Lymphocytes # (Auto) 1.3, Monocytes # (Auto) 1.0, Eosinophils # (Auto) 0.0, Basophils # (Auto) 0.1, Immature Granulocyte # (Auto) 0.4H, Neutrophils % (Manual) 81, Lymphocytes % (Manual) 11, Monocytes % (Manual) 5, Eosinophils % (Manual) 0, Basophils % (Manual) 0, Metamyelocytes % 1, Band Neutrophils 2, Target Cells MODERATE, So dium Level 132L, Potassium Level 3.7, Chloride Level 94L, Carbon Dioxide Level 23, Anion Gap 15H, Blood Urea Nitrogen 9, Creatinine 1.32H, Estimat Glomerular Filtration Rate 53, BUN/Creatinine Ratio 7, Glucose Level 154H, Calcium Level 8.8, Corrected Calcium 9.8, Total Bilirubin 8.0H, Aspartate Amino Transf (AST/SGOT) 115H, Alanine Aminotransferase (ALT/SGPT) 22, Alkaline Phosphatase 178H, C-Reactive Protein High Sensitivity 3.61H, Total Protein 8.3H, Albumin 2.8L, Lipase 981H, Serum Test, Qualitative NEGATIVE 12/27/19 09:42: Urine Color AMBERH, Urine Clarity TURBID, Urine pH 5.0, Urine Specific Beaver 1 .025H, Urine Protein 2+H, Urine Glucose (UA) TRACEH, Urine Ketones 1+H, Urine Nitrite POSITIVEH, Urine Bilirubin 3+H, Urine Urobilinogen 2.0, Urine Leukocyte Esterase 2+H, Urine RBC (Auto) TRACE-L, Urine RBC 5-10H, Urine WBC >100H, Urine Squamous Epithelial Cells >50H, Urine Crystals NONE, Urine Bacteria LARGEH, Urine Casts NONE, Urine Mucus NEGATIVE, Urine Culture Indicated YES Assessment/Plan Assessment/Plan Assessment/Plan Ascites Cirrhosis Plan for paracentesis and then can follow up in the office with Dr. Christensen. We discussed the procedure; risks and complications not limited to pain, bleeding, infection and scar. All questions answered to her satisfaction. I encouraged her to go see Dr. Vargas at [facility], because she has a special interest in Cirrhosis and liver disease. MOHAN CURTIS DO Dec 27, 2019 11:45
[2019-12-27] MEDS ORDERED: ALBUMIN 25% 25 GM/100 ML 100 ML IV ONE (12:00)
--- NOTE | 2019-12-27 12:34 | NUR ---
PT REPORTED TO THIS RN THAT SHE HAD LOST HER [place] RINGS IN THE BED. STATES SHE WAS TWISTING THEM AND THEY FELL OFF. PTS BEDDING, USED BLANKETS, AND TRASH WAS GONE THROUGH LOOKING FOR RINGS. PT WAS GOING TO GO THROUGH OWN PURSE. PT COULD NOT PROVIDE DESCRIPTION OF RINGS THAT WERE MISSING.
[2019-12-27] MEDS ORDERED: CEPH-507 PO (12:41)
[2019-12-27] MEDS ORDERED: ONDA4TAB11 SL (12:41)
[2019-12-27 15:14] VITALS: BP 119/86
== END 2019-12-27 15:14 | disposition home or self-care (01) ==
LOC: EDUNIT# 07:47 → ER 07:49
DX: R18.8 Other ascites (principal); K72.10 Chronic hepatic failure without coma; N39.0 Urinary tract infection, site not specified; E80.6 Other disorders of bilirubin metabolism; R74.8 Abnormal levels of other serum enzymes
CPT/HCPCS: 36415; 71045; 80053; 81000; 83690; 84703; 85007; 85027; 86141; 87088

== ENCOUNTER → 2020-01-01 | Outpatient (CLI) | payer BC ==
[~2020-01-01] MED LIST changes: +CEPH-507 PO; +ONDA4TAB11 SL
[2020-01-01 12:58] LABS: ALBUMIN 2.4 GM/DL (3.2-4.5); BILIRUBIN,TOTAL 6.3 MG/DL (0.1-1.0); CALCIUM 8.4 MG/DL (8.5-10.1); CREATININE SERUM 2.21 MG/DL (0.60-1.30); MAGNESIUM 1.3 MG/DL (1.6-2.4); TOTAL PROTEIN 7.1 GM/DL (6.4-8.2)
== END ==
LOC: LAB 12:09
PROVIDERS: ATTEND Internal Medicine
DX: K70.10 Alcoholic hepatitis without ascites (principal); K70.30 Alcoholic cirrhosis of liver without ascites
CPT/HCPCS: 36415; 80053; 83690; 83735